=== PATIENT | male | born 1960 | race African-American/Black ===

== ENCOUNTER 2019-03-21 16:06 | Emergency (ER) | payer BC ==
[2019-03-21 19:28] LABS: ABS Eosinophils 0.2 10^3/ul (0-0.6); ABS Lymphocytes 2.7 10^3/ul (1.0-4.8); ABS Monocytes 0.5 10^3/ul (0-0.8); ABS Neutrophils 4.9 10^3/ul (1.5-7.7); Eosinophil % 2.3 %; Hematocrit 40 % (42-52); Hemoglobin 13.4 g/dL (14.0-18.0); Lymphocyte % 32.7 %; Mean Corpuscular HGB Conc 34 g/dL (31-36); Mean Corpuscular Hemoglobin 31 pg (27-31); Mean Corpuscular Volume 92 fL (80-94); Mean Platelet Volume 8.5 fL (7.4-10.4); Platelet Count 267 10^3/uL (150-450); Red Blood Count 4.36 10^6 /uL (4.18-5.48); Red Cell Distribution Width 12 % (10-15); White Blood Count 8.3 10^3/uL (3.5-10.8)
[2019-03-21 19:44] LABS: Albumin 4.4 g/dL (3.2-5.2); Albumin/Globulin Ratio 1.4 (1-3); BUN/Creatinine Ratio 9.1 (8-20); Calcium 9.8 mg/dL (8.6-10.3); EGFR African American 108.4 (>60); EGFR Non-African American 89.6 (>60); Globulin 3.2 g/dL (2-4); Potassium 3.7 mmol/L (3.5-5.0); Total Bilirubin 0.5 mg/dL (0.2-1.0); Total Protein 7.6 g/dL (6.4-8.9)
[2019-03-21 19:45] LABS: Troponin I 0.01 ng/mL (<0.04)
--- NOTE | 2019-03-21 20:31 | ED ---
Hypertension - HPI Summary HPI Summary: The patient is a 58 y/o M presenting to [facility] with a chief complaint of hypertensive symptoms over the past two days. He reports that his BP has been elevated despite compliant Metoprolol (150mg once daily) use over the last few days with new onset of fogginess in his head since yesterday. There has been no relief of the sensation with Ibuprofen and Excedrin use with last medication Ibuprofen 800mg at 0700 this morning. He denies any CP, SOB, palpitations, nausea, vomiting, diarrhea, or dysuria. Currently, his symptoms are rated /10 in severity. PMhx: HTN. Former smoker, no EtOH, no substance use. Medications reviewed. Allergies noted. - History of Current Complaint Chief Complaint: EDHypertension Stated Complaint: HIGH BLOOD PRESSURE PER PT Time Seen by Provider: 03/21/19 20:24 Hx Obtained From: Patient Onset/Duration: Started Days Ago, Still Present Timing: Lasting Days - since yesterday Aggravating Factor(s): Nothing Alleviating Factor(s): Nothing - Ibuprofen and Excedrin to no relief Associated Signs & Symptoms: Other: - Negative: CP, SOB, nasuea, vomiting, diarrhea, dysuria Related Hx: Diagnosed As: - HTN - Risk Factors Cardiac Risk Factors: Hypertension - Allergies/Home Medications Allergies/Adverse Reactions: Allergies Allergy/AdvReac Type Severity Reaction Status Date / Time No Known Allergies Allergy Verified 11/04/15 08:13 PMH/Surg Hx/FS Hx/Imm Hx Endocrine/Hematology History: Denies: Hx Diabetes Cardiovascular History: Reports: Hx Hypertension GI History: Reports: Hx Ulcer - gerd - Surgical History Surgical History: Yes Surgery Procedure, Year, and Place: left shoulder Infectious Disease History: No Infectious Disease History: Denies: History Other Infectious Disease, Traveled Outside the [place] in Last 30 Days - Family History Known Family History: Positive: Hypertension - Social History Alcohol Use: None Hx Substance Use: No Substance Use Type: Reports: None Hx Tobacco Use: No Smoking Status (MU): Former Smoker Review of Systems Positive: Other - elevated BP. Negative: Palpitations, Chest Pain Negative: Shortness Of Breath Negative: Vomiting, Diarrhea, Nausea Negative: dysuria Positive: Headache - head fogginess All Other Systems Reviewed And Are Negative: Yes Physical Exam - Summary Physical Exam Summary: Constitutional: Well-developed, Well-nourished, Alert. (-) Distressed Skin: Warm, Dry HENT: Normocephalic; Atraumatic Eyes: Conjunctiva normal Neck: Musculoskeletal ROM normal neck. (-) JVD, (-) Stridor, (-) Tracheal deviation Cardio: Rhythm regular, rate normal, Heart sounds normal; Intact distal pulses; The pedal pulses are 2+ and symmetric. Radial pulses are 2+ and symmetric. (-) Murmur Pulmonary/Chest wall: Effort normal. (-) Respiratory distress, (-) Wheezes, (-) Rales Abd: Soft, (-) tenderness, (-) Distension, (-) Guarding, (-) Rebound Musculoskeletal: Good pulses bilaterally in radius, No calf tenderness, No venous cords, No pain with dorsiflexion of foot. (-) Edema Lymph: (-) Cervical adenopathy Neuro: Alert, Oriented x3, Strength normal, Cranial nerves II-XII are grossly intact. (-) Dysmetria, (-) Nystagmus, (-) Ataxia by finger to nose testing, (-) Sensory deficit. Psych: Mood and affect Normal Triage Information Reviewed: Yes Vital Signs On Initial Exam: Initial Vitals Temp Pulse Resp BP Pulse Ox 97.4 F 84 18 180/83 99 03/21/19 16:07 03/21/19 16:07 03/21/19 16:07 03/21/19 16:07 03/21/19 16:07 Vital Signs Reviewed: Yes Diagnostics - Vital Signs Vital Signs Temp Pulse Resp BP Pulse Ox 03/21/19 17:58 97.8 F 71 20 171/90 98 03/21/19 16:07 97.4 F 84 18 180/83 99 - Laboratory Lab Results: Lab Results 03/21/19 03/21/19 Range/Units 19:18 19:18 WBC 8.3 (3.5-10.8) 10^3/uL RBC 4.36 (4.18-5.48) 10^6 /uL Hgb 13.4 L (14.0-18.0) g/dL Hct 40 L (42-52) % MCV 92 (80-94) fL MCH 31 (27-31) pg MCHC 34 (31-36) g/dL RDW 12 (10-15) % Plt Count 267 (150-450) 10^3/uL MPV 8.5 (7.4-10.4) fL Neut % (Auto) 58.8 % Lymph % (Auto) 32.7 % [place] % (Auto) 6.0 % Eos % (Auto) 2.3 % Baso % (Auto) 0.2 % Absolute Neuts (auto) 4.9 (1.5-7.7) 10^3/ul Absolute Lymphs (auto) 2.7 (1.0-4.8) 10^3/ul Absolute Monos (auto) 0.5 (0-0.8) 10^3/ul Absolute Eos (auto) 0.2 (0-0.6) 10^3/ul Absolute Basos (auto) 0.0 (0-0.2) 10^3/ul Absolute Nucleated RBC 0.0 10^3/ul Nucleated RBC % 0.0 Sodium 141 (135-145) mmol/L Potassium 3.7 (3.5-5.0) mmol/L Chloride 104 (101-111) mmol/L Carbon Dioxide 28 (22-32) mmol/L Anion Gap 9 (2-11) mmol/L BUN 8 (6-24) mg/dL Creatinine 0.88 (0.67-1.17) mg/dL Est GFR ( Amer) 108.4 (>60) Est GFR (Non-Af Amer) 89.6 (>60) BUN/Creatinine Ratio 9.1 (8-20) Glucose 80 (70-100) mg/dL Calcium 9.8 (8.6-10.3) mg/dL Total Bilirubin 0.50 (0.2-1.0) mg/dL AST 16 (13-39) U/L ALT 15 (7-52) U/L Alkaline Phosphatase 88 (34-104) U/L Troponin I 0.01 (<0.04) ng/mL Total Protein 7.6 (6.4-8.9) g/dL Albumin 4.4 (3.2-5.2) g/dL Globulin 3.2 (2-4) g/dL Albumin/Globulin Ratio 1.4 (1-3) Result Diagrams: 03/21/19 19:18 03/21/19 19:18 Lab Statement: Any lab studies that have been ordered have been reviewed, and results considered in the medical decision making process. Hypertension Course/Dx - Course Course Of Treatment: Patient is here with slightly worsening blood pressure 1 past day or 2 with a frontal headache. Patient has a normal neurologic exam is overall well-appearing. Patient had more performed which is grossly unremarkable. Patient did not need emergent imaging here. Patient was given a dose of Fioricet for his headache. Patient discharged with a prescription for that. Patient was encouraged to follow up with his primary care doctor for adjustment of his metoprolol which I offered to do but he declined. - Diagnoses Provider Diagnoses: Hypertension, Headache Discharge ED - Sign-Out/Discharge Documenting (check all that apply): Patient Departure - Patient will be discharged home. Patient Received Moderate/Deep Sedation with Procedure: No - Discharge Plan Condition: Stable Disposition: HOME Prescriptions: Butalb/Acetamin/Caff TAB* [Fioricet TAB*] 1 tab PO Q6H PRN #12 tab MDD 4 tabs PRN Reason: Headache Patient Education Materials: Acute Headache (DC), Hypertension (ED) Referrals: Cristino Sierra MD [Primary Care Provider] - 3 Days Additional Instructions: Follow up with your primary care provider to consult about adjusting your Metoprolol dosage. Return to the emergency department for any new or worsening symptoms such as slurred speech, change in vision, chest pain, or anything else that concerns you. - Billing Disposition and Condition Condition: STABLE Disposition: Home - Attestation Statements Document Initiated by Elsa: Yes Documenting Scribe: Stacy Casillas Provider For Whom Elsa is Documenting (Include Credential): Dr. Eber Anderson MD Scribe Attestation: Stacy Hills scribed for Dr. Eber Anderson MD on 03/21/19 at 2053. Scribe Documentation Reviewed: Yes Provider Attestation: The documentation as recorded by the Stacy delcid accurately reflects the service I personally performed and the decisions made by me, Dr. Eber Anderson MD Status of Scribalem Document: Viewed
[2019-03-21] MEDS: Butalb/Acetamin/Caff TAB* 1 TAB PO ONE (20:54)
[2019-03-21 20:57] VITALS: BP 165/88
== END 2019-03-21 20:43 | disposition home or self-care (01) ==
LOC: ED 16:06
DX: I10 Essential (primary) hypertension (principal); K21.9 Gastro-esophageal reflux disease without esophagitis; Z87.891 Personal history of nicotine dependence; Z79.899 Other long term (current) drug therapy
CPT/HCPCS: 36415; 80053; 84484; 85025; 99282; A9270-GY